=== PATIENT | female | born 2000 | race African-American/Black ===

== ENCOUNTER 2024-11-30 18:14 | Emergency (ER) | payer SELFPAY ==
[~2024-11-30] VITALS: Ht 165.1 cm; Wt 54.4 kg
[2024-11-30 18:21] VITALS: BP 114/74
[2024-11-30 18:24] VITALS: BP 114/74
[2024-11-30] MEDS ORDERED: traMADol HCL 50 MG/TAB PO ONE (18:25)
[2024-11-30] MEDS ORDERED: AMOXICILLIN & POT CLAVULANATE 875 MG/TAB PO ONE (18:25)
[2024-11-30 18:30] VITALS: BP 122/102
[2024-11-30] MEDS ORDERED: AMOX/K CLAV875 M1 PO (18:36)
[2024-11-30] MEDS ORDERED: LIDOCAINE21 MT (18:36)
[2024-11-30] MEDS ORDERED: TRAMADOL HYDROC50 M1 PO (18:36)
== END 2024-11-30 18:41 | disposition home or self-care (01) | DRG 159 ==
LOC: ED 18:14
DX: K04.7 Periapical abscess without sinus (principal); K02.9 Dental caries, unspecified